=== PATIENT | male | born 1970 | race Caucasian/White ===

== ENCOUNTER 2019-01-27 11:07 | Emergency (ER) | payer OTHER, BC ==
[~2019-01-27] VITALS: Ht 177.8 cm; Wt 88.5 kg
[2019-01-27 11:36] VITALS: BP 132/80
--- NOTE | 2019-01-27 11:44 | PHYS DOC ---
Past Medical History Past Medical History: GERD Past Surgical History: Other Additional Past Surgical Histo: LEFT THUMB, WISDOM TEETH Alcohol Use: Rarely Drug Use: None Adult General Chief Complaint Chief Complaint: LACERATION/AVULSION [facility] HPI Patient is a 48 year old male who presents to the emergency department with complaints of a laceration to his right thumb. Patient states he was at work when he accidentally cut himself on his sheet metal. He denies any decreased range of motion or weakness of the affected finger. He states his last tetanus shot was less than 5 years ago. He denies any numbness, tingling, or weakness of the affected digit. He currently rates his pain a 4 out of 10 on the pain scale, he denies any alleviating factors, the pain increases with movement. All other ROS is neg unless otherwise noted in HPI. Review of Systems Review of Systems See Above Current Medications Current Medications Current Medications Medications (Trade) Dose Ordered Sig/Tyrone Start Time Stop Time Status Last Admin Dose Admin Lidocaine HCl (Xylocaine-Mpf 1% 2ml Vial) 4 ml 1X ONCE 01/27/19 11:45 01/27/19 11:46 DC 01/27/19 11:50 4 ML Neomycin/ Polymyxin/ Bacitracin (Triple Antibiotic Ointment) 1 pkt 1X ONCE 01/27/19 11:45 01/27/19 11:46 DC 01/27/19 11:50 1 PKT Allergies Allergies Allergies Coded Allergies Type Severity Reaction Last Updated Verified No Known Drug Allergies 01/27/19 No Physical Exam Physical Exam See Above Constitutional: Well developed, well nourished, no acute distress, non-toxic appearance. [] HENT: Normocephalic, atraumatic, bilateral external ears normal, oropharynx moist, no oral exudates, nose normal. [] Eyes: PERRLA, EOMI, conjunctiva normal, no discharge. [] Neck: Normal range of motion, no tenderness, supple, no stridor. [] Cardiovascular:Heart rate regular rhythm Lungs & Thorax: Respirations even and unlabored, no retractions, no respiratory distress Skin: Warm, dry, no erythema, no rash; 2 cm laceration extending over the DIP on the volar surface of the right thumb, full extension and flexion of the affected thumb. [] Extremities: No cyanosis, ROM intact, no edema. [] Neurologic: Alert and oriented X 3, no focal deficits noted. [] Psychologic: Affect normal, judgement normal, mood normal. [] Current Patient Data Vital Signs Vital Signs Date Time Temp Pulse Resp B/P (MAP) Pulse Ox O2 Delivery O2 Flow Rate FiO2 01/27/19 11:36 97.9 68 16 132/80 (97) 96 Room Air 97.9 EKG EKG [] Radiology/Procedures Radiology/Procedures Laceration Repair by me: Anesthesia: 1% lidocaine locally Location: Right thumb Tendon/Joint/Nerves: No injury Foreign body: None detected after copious irrigation and exploration Technique: 5 Simple Interrupted Sutures with 4-0 Ethilon Complexity: No subcutaneous sutures/mucosal repair/edge excision Post Closure Length: 2 cm Patient's bleeding was easily controlled in the department and there is no indication of anemia. No evidence of compartment syndrome, neurologic injury, vascular injury, open joint, tendon laceration, or foreign body. Patient is appropriate for outpatient follow up. Course & Med Decision Making Course & Med Decision Making Pertinent Labs and Imaging studies reviewed. (See chart for details) [] Dragon Disclaimer Dragon Disclaimer This electronic medical record was generated, in whole or in part, using a voice recognition dictation system. Departure Departure Impression: Primary Impression: Laceration of right thumb without foreign body without damage to nail Disposition: 01 HOME, SELF-CARE Condition: STABLE Referrals: DANO LUBIN DO (PCP) Patient Instructions: Laceration Care, Adult, [id number] Additional Instructions: Keep the area clean and dry. You may take Tylenol or ibuprofen as needed for pain. Keep the dressing that was placed today on for 24 hours then change the dressing twice a day and apply antibiotic ointment to the area. Wear the splint that was placed until the sutures have been removed. Follow-up with your primary care doctor, or return to the emergency room in 14 days to have the sutures removed, sooner if you develop signs of infection including: redness, warmth, drainage, or a fever. Problem Qualifiers Primary Impression: Laceration of right thumb without foreign body without damage to nail Encounter type: initial encounter Qualified Codes: S61.011A - Laceration without foreign body of right thumb without damage to nail, initial encounter DULCE MARIA NEWMAN CONSULTANT RN Jan 27, 2019 11:44
[2019-01-27] MEDS ORDERED: LIDOCAINE 1% PF 2 ML VIAL. INJ ONE (11:45)
[2019-01-27] MEDS ORDERED: NEOMY/BACITR/POLYMYXIN OINT PACKET. TP ONE (11:45)
== END 2019-01-27 12:39 | disposition home or self-care (01) ==
LOC: ER 11:07
DX: S61.011A Laceration without foreign body of right thumb without damage to nail, initial encounter (principal); K21.9 Gastro-esophageal reflux disease without esophagitis; W26.8XXA Contact with other sharp object(s), not elsewhere classified, initial encounter; Y93.89 Activity, other specified; Y92.89 Other specified places as the place of occurrence of the external cause; Y99.8 Other external cause status
CPT/HCPCS: 12001; 99283